=== PATIENT | female | born 1945 | race Caucasian/White ===

== ENCOUNTER → 2016-09-16 | Outpatient (CLI) | payer MEDICARE, OTHER | END | disposition home or self-care (01) | LOC: CFH 14:49 | PROVIDERS: ATTEND Nurse Practitioner Family | DX: Z12.31 Encounter for screening mammogram for malignant neoplasm of breast (principal) | CPT/HCPCS: G0202 ==

== ENCOUNTER → 2017-09-18 | Outpatient (CLI) | payer MEDICARE, OTHER | END | disposition home or self-care (01) | LOC: CFH 09:20 | PROVIDERS: ATTEND Family Medicine | DX: Z12.31 Encounter for screening mammogram for malignant neoplasm of breast (principal); Z13.820 Encounter for screening for osteoporosis; M85.88 Other specified disorders of bone density and structure, other site; E03.9 Hypothyroidism, unspecified | CPT/HCPCS: 77080; 77067 ==

== ENCOUNTER 2020-05-03 10:51 | Emergency (ER) | payer MEDICARE, OTHER ==
[~2020-05-03] VITALS: Ht 167.6 cm; Wt 80.0 kg
--- NOTE | 2020-05-03 11:00 | NUR ---
"Whenever I go to the doctor my BP is always really high, I have whitecoat syndrome."
--- NOTE | 2020-05-03 11:01 | NUR ---
Pt ambulatory to bathroom, steady gait.
[2020-05-03] MEDS ORDERED: LIDOCAINE-MPF 1%, 5ML INFIL ONE (11:30)
[2020-05-03] MEDS ORDERED: LIDOCAINE-MPF 1%, 5ML ONE (11:51)
[2020-05-03 12:46] VITALS: BP 167/100
== END 2020-05-03 12:48 | disposition home or self-care (01) ==
LOC: ED 11:11
DX: S61.213A Laceration without foreign body of left middle finger without damage to nail, initial encounter (principal); W01.0XXA Fall on same level from slipping, tripping and stumbling without subsequent striking against object, initial encounter; Y93.89 Activity, other specified; Y92.410 Unspecified street and highway as the place of occurrence of the external cause; Y99.8 Other external cause status
CPT/HCPCS: 12041; 99284